=== PATIENT | male | born 1945 | race Caucasian/White ===

== ENCOUNTER 2017-04-07 19:19 | Inpatient (IN) ==
[2017-04-07] MEDS ORDERED: METHYLPREDNISOLONE SOD SUCC 125mg/2ml INJECTION IVP ONE (19:34)
[2017-04-07] MEDS ORDERED: ALBUTEROL/IPRATROPIUM 2.5mg-0.5mg/3ml NEB AEROSOL ONE (19:34)
--- OUTSIDE RECORDS SUMMARY | 2017-04-07 19:34 | External Medical Summary | Continuity of Care Document ---
:1945 Author Organization [facility] Allergies Active Description Code Type Severity Reaction Onset Reported/ Identified Relationship Clinical to Patient Status Yes No Known No Drug Unknown . 08/28/2014 Drug Known Aller Allergies Drug gy Aller gies Medications Problems Procedures Code Description Performed By Performed On Joey Levi MD 08/29/2014 45.42 ENDOSC POLYPECTOMY OF LG INTEST Results Test Result Range GLUCOSE (POC) - 08/29/14 09:17 GLUCOSE (POC) 132 mg/dL 70-99 GLUCOSE (POC) - 08/29/14 11:00 GLUCOSE (POC) 101 mg/dL 70-99 Encounters ACCT Visit Discharge Status Pt. Type Provider Facility Loc./Unit Complaint No. Date/Time [id number] 08/29/2014 08/29/2014 DIS Outpatient Amita OSCAR [id number] 08:35:00 11:00:00 , [facility]
--- NOTE | 2017-04-07 19:35 | Emergency Department Report ---
Asthma HPI - General Stated Complaint: soa,cough,chest hurts Time Seen by Provider: 04/07/17 19:30 Source: patient Mode of arrival: ambulatory Limitations: no limitations - History of Present Illness HPI Narrative: He has been having some trouble with wheezing and dyspnea over the last month. Was evaluated in ER a week ago for SOA. Was given a breathing treatment and Prednisone and that did help. Was advised to follow up with his PCP. He has an appointment with his graphic manager but is unable to get in with him for awhile. Today his breathing was much worse so he presents to Er. He does have an inhaler at home that he has been using. Noted RA sats upon arrival of 68%. He is diaphoretic. Is having chest pain with coughing he states. Is scheduled to see Dr Obando the process supervisor but no until May. He has been using his inhaler every 30 minutes today. MD complaint: shortness of breath, wheezing Onset (ago): day(s) Severity: moderate Context: none known Associated symptoms: none Treatments Prior to Arrival: inhaled bronchodilator - Related Data Home Medications Medication Instructions Recorded Confirmed Atorvastatin [Lipitor] 20 mg PO HS 01/11/17 04/07/17 Metformin [Glucophage] 1,000 mg PO BID 01/11/17 04/07/17 Albuterol HFA Inhaler [Ventolin 1 puff INH BID 04/01/17 04/07/17 Hfa 90 mcg/actuation] FLUoxetine [Prozac] 10 mg PO DAILY 04/01/17 04/07/17 glipiZIDE [Glipizide ER] 10 mg PO DAILY 04/01/17 04/07/17 Guaifenesin/Dm [Mucinex Dm] 1 tab PO BID PRN 04/07/17 04/07/17 Previous Rx's Medication Instructions Recorded Albuterol Neb (0.5%) [Proventil 2.5 mg AEROSOL Q4H PRN #30 vial 04/01/17 Neb (0.5%)] predniSONE [Prednisone] 10 mg PO DAILY #18 tab 04/01/17 Allergies Allergy/AdvReac Type Severity Reaction Status Date / Time No Known Allergies Allergy Verified 04/07/17 20:03 Review of Systems Constitutional: Denies: fever, chills, weakness ENT: Denies: ear pain, throat pain, congestion Cardiovascular: Reports: chest pain, dyspnea on exertion. Denies: palpitations , edema Respiratory: Reports: cough, dyspnea, wheezes Gastrointestinal: Denies: abdominal pain, nausea, vomiting, diarrhea Neurological: Denies: headache, weakness, numbness, paresthesias [facility] Patient Stated Medical History Asthma Yes Diabetes Mellitus Type 2 Yes Gastroesophageal Reflux Yes Disease Clinic Medical History Hypoxia (Acute Medical) Asthma with exacerbation (Inactive Medical) Vasculitis (Inactive Medical) - Social History Smoking status: Former smoker Substance use type: does not use Alcohol intake frequency: does not drink Physical Exam - Limitations Limitations: no limitations - General General appearance: alert, in no apparent distress - Normal Exams: ENMT:: No facial trauma, nasal exudates, pharyngeal erythema, or exudates are noted Neck:: Full range of motion, without adenopathy, JVD, bruits or thyromegaly Abdomen:: Bowel sounds positive, soft, non-tender, non-distended, no hepatosplenomegaly, masses or bruits noted Lymphatic:: No lymphadenopathy, or lymphedema noted Integumentary:: No rashes, hives, or bruising noted Neurological:: Patient is alert, and oriented Psychiatric:: Patient exhibits, appropriate attention, emotion and affect - Respiratory Respiratory exam: Present: wheezes (inspiratory and expiratory throughout all lobes) - Cardiovascular Cardiovascular exam: Present: tachycardia Course Vital Signs Temperature 98.2 F 04/07/17 19:22 Pulse Rate 115 H 04/07/17 19:22 Respiratory Rate 33 H 04/07/17 19:22 Blood Pressure 208/97 H 04/07/17 19:22 Pulse Oximetry 68 L 04/07/17 19:22 Temperature 98.2 F 04/07/17 19:22 Pulse Rate 114 H 04/07/17 21:06 Respiratory Rate 22 04/07/17 21:06 Blood Pressure 136/86 04/07/17 21:06 Pulse Oximetry 95 04/07/17 21:06 Dyspnea - MDM Narrative Medical decision making narrative: Xray today does not show a focal pneumonia. He was able to give a sputum sample and this was sent off for culture. Lab does show WBC of 21 without neutrophilia or bandemia. He did recently finish a steroid taper. Is currently on 2L per NC of O2 and sats are 95%. Did discuss with Dr Espinosa and he will accept for admission. - Differential Diagnosis Differential diagnosis: Likely: Acute exacerbation, Status asthmaticus, Pneumonia, ARDS - Lab Data Attestation: I reviewed the patient's lab results. Result diagrams: 04/07/17 19:53 04/07/17 19:53 Lab Results 04/07/17 04/07/17 04/07/17 Range/Units 19:53 19:53 19:53 WBC 21.6 H (4.5-11.0) T/MM3 RBC 4.52 (4.50-5.90) M/MM3 Hgb 13.4 L (13.5-17.5) GM/DL Hct 41.8 (41-53) % MCV 92.5 (80-100) UM3 MCH 29.6 (26-34) UUG MCHC 32.1 (31-37) GM/DL RDW Std Deviation 45.1 (36.9-50.2) FL Plt Count 359 (130-400) T/MM3 MPV 8.4 L (9.4-12.4) UM3 Immature Gran % (Auto) Not performed Neut % (Auto) Not performed Lymph % (Auto) Not performed [place] % (Auto) Not performed Eos % (Auto) Not performed Baso % (Auto) Not performed Neut # (Auto) Not performed Lymph # (Auto) Not performed [place] # (Auto) Not performed Eos # (Auto) Not performed Baso # (Auto) Not performed Abs Immat Gran (auto) Not performed Neutrophils % (Manual) 59.0 (33-66) % Band Neutrophils % 1.0 (0-6) % Lymphocytes % (Manual) 26.0 (23-45) % Monocytes % (Manual) 4.0 (0-9.0) % Eosinophils % (Manual) 10.0 H (0-4) % Neutrophils # (Manual) 12.7 H (1.8-7.7) T/MM3 Band Neutrophils # 0.2 T/MM3 Lymphocytes # (Manual) 5.6 H (1-4.8) T/MM3 Monocytes # (Manual) 0.9 H (0-0.8) T/MM3 Eosinophils # (Manual) 2.2 H (0-0.5) T/MM3 RBC Morph Comment Normal Turbidity < 20 (0-20) Sodium 142 (134-144) MEQ/L Potassium 3.9 (3.6-5) MEQ/L Chloride 101 (98-107) MEQ/L Carbon Dioxide 28 (22-30) MEQ/L Anion Gap 13 (5-15) MEQ/L BUN 13.0 (9-20) MG/DL Creatinine 0.8 (0.8-1.5) MG/DL GFR Calculation 96 BUN/Creatinine Ratio 16 (6-26) RATIO Glucose 125 H (75-110) MG/DL Calculated Osmolality 274 (261-280) MOSM/KG Calcium 9.2 (8.4-10.2) MG/DL Total Bilirubin 0.30 (0.20-1.30) MG/DL Icterus Index < 2 (0-7) AST 36 (17-59) U/L ALT 81 H (21-72) U/L Alkaline Phosphatase 104 (38-126) U/L Troponin I < 0.012 (0-0.12) ng/ml Total Protein 7.8 (6.3-8.2) G/DL Albumin 4.3 (3.5-5.0) G/DL Globulin 3.5 (2.4-3.6) G/DL Albumin/Globulin Ratio 1.2 (1.1-2.2) RATIO Plasma Lactate 1.8 (0.6-2.2) MMOL/L Procalcitonin < 0.05 NG/ML Specimen Hemolysis < 15 (0-25) - Radiology Data Attestation: I reviewed the patient's radiology results. Chest xray: no focal pneumonia, emphysematous changes. Disposition Clinical Impression: Hypoxia Disposition: To OBS [facility] Condition: Stable Prescriptions: No Action Metformin [Glucophage] 1,000 mg PO BID Albuterol HFA Inhaler [Ventolin Hfa 90 mcg/actuation] 1 puff INH BID glipiZIDE [Glipizide ER] 10 mg PO DAILY Albuterol Neb (0.5%) [Proventil Neb (0.5%)] 2.5 mg AEROSOL Q4H PRN #30 vial PRN Reason: Shortness Of Air/Wheezing predniSONE [Prednisone] 10 mg PO DAILY #18 tab Guaifenesin/Dm [Mucinex Dm] 1 tab PO BID PRN PRN Reason: Cough Atorvastatin [Lipitor] 20 mg PO HS FLUoxetine [Prozac] 10 mg PO DAILY Referrals: Heidy,Vazquez W, MD [Family Provider] - Time of Disposition: 21:48 - Seen By: midlevel
[2017-04-07] MEDS: SALINE FLUSH 10ml SYRINGE IVF PRN (19:41)
[2017-04-07] MEDS ORDERED: ALBUTEROL 2.5mg/3ml (0.083%) NEB AEROSOL ONE (19:59)
[2017-04-07] MEDS ORDERED: LEVOFLOXACIN PB 750 MG/150 ML BAG IV SCH (22:00)
--- NOTE | 2017-04-07 22:35 | History & Physical Report ---
History of Present Illness Date: 04/07/17 Chief complaint: dyspnea HPI: Shreyas is a 72 y/o w/ 1-2 month h/o persistent cough, intermittent shortness of air and wheezing that has become more prominent over the past 1-2 weeks. Patient was seen in [place] ER about 1 week ago for SOA and dyspnea and wheezing and temporarily improved w/ corticosteroids and neb treatments and sent home w/ albuterol mdi and tapering prednisone Patient returns to ER at [facility] tonight w/ persistent cough, dyspnea, wheezing and shortness of breath. Patient states he has no known h/o COPD or asthma, though states had similar episode about 6 years ago and also states did have asbestos exposure in the past. Patient states was set up to see local Head Tennis Coach Dr. Obando and also a Human Resources Representative in [place] but has not seen either of them yet. Patient in ER having wheezing and dyspnea and on RA was noted to have O2 sat of 68%. He had some diaphoresis and tachypnea and sinus tachycardia but denies chest pain, f/c/s and n/v/d. However does have some Chest discomfort w/ coughing episodes. Was using his albuterol inhaler about every 30 minutes tonight prior to arrival in ER. Patient states that his had a similar cough that lasted about 4 weeks and she is doing better now. Patient received DuoNebs x 2 and SoluMedrol 125mg IV x one and is now doing much better. O2 sat is 95% on 2 L/min O2 per NC. Patient's CXR prelim read that of no acute process, and EKG shows sinus tachycardia. Troponin and Lactate WNL; WBC = 21.6K. No left shift. Patient given Levaquin 750mg IV x one, had blood and sputum culture sent. Patient to be admitted to the Hospitalist service for further evaluation and management Review of Systems All systems PM: 10-point ROS was reviewed, no additional remarkable complaints except [facility] Clinic Medical History Hypoxia (Acute Medical) Asthma with exacerbation (Inactive Medical) - patient does not believe he has Asthma - said was possibly diagnosed d/t similar symptoms 6 years ago, but did not feel there was a definitive diagnosis. Vasculitis (Inactive Medical) HLD Medical History Updates: Type 2 DM Family History: No significant family history reported - Social History Smoking status: Former smoker Household members: spouse Medications Home Medications Medication Instructions Recorded Confirmed Type Atorvastatin [Lipitor] 20 mg PO HS 01/11/17 04/07/17 History Metformin [Glucophage] 1,000 mg PO BID 01/11/17 04/07/17 History Albuterol HFA Inhaler [Ventolin 1 puff INH BID 04/01/17 04/07/17 History Hfa 90 mcg/actuation] FLUoxetine [Prozac] 10 mg PO DAILY 04/01/17 04/07/17 History glipiZIDE [Glipizide ER] 10 mg PO DAILY 04/01/17 04/07/17 History Guaifenesin/Dm [Mucinex Dm] 1 tab PO BID PRN 04/07/17 04/07/17 History Allergies Allergy/AdvReac Type Severity Reaction Status Date / Time No Known Allergies Allergy Verified 04/07/17 20:03 Exam Vital Signs: Temperature 98.2 F 04/07/17 19:22 Pulse Rate 114 H 04/07/17 21:06 Respiratory Rate 22 04/07/17 21:06 Blood Pressure 136/86 04/07/17 21:06 Pulse Oximetry 95 04/07/17 21:06 Telemetry Rhythm: Sinus Rhythm, Sinus Tachycardia - Constitutional Present: no acute distress, well nourished, well developed - Routine HEENT Exam Head: Present: normocephalic, atraumatic Eye: Present: EOMI, PERRL ENT: Present: mucous membranes moist - Routine Neck Exam Present: supple, full ROM. Absent: JVD - Routine Respiratory Exam Present: prolonged expiratory phase, wheezes, diminished air movement - Routine Cardiovascular Exam Present: RRR, tachycardia - Routine Abdominal Exam Present: soft, non distended, non tender - Routine Extremities Exam Absent: cyanosis, clubbing, edema - Routine Skin Exam Present: intact, dry - Routine Neurological Exam Present: alert, oriented X3 - Routine Psychiatric Exam Present: normal affect, normal thought process Results - Labs CBC & Chem 7: 04/07/17 19:53 04/07/17 19:53 Assessment and Plan Assessment and Plan: Assessment: 1) Acute Hypoxia requiring O2 2) ACute Exacerbation of Reactive Airways - ? asthma vs. COPD vs. Atypical pnuemonia w/o radiographic signs vs. other etiology 3) Acute Leukocytosis - possible reactive vs. corticosteroid induced vs. other etiology 4) Type 2 DM 5) History of smoking - states was cigar smoking, not cigarettes; also h/o asbestos exposure 6) HLD Plan: Admit to Hospitalist service Consult Dr. Obando of Pulmonary RT consult DuoNebs QID Albuterol nebs q 2 hours prn Levaquin 750mg IV q 24 hours Sputum cx Blood cx Resp panel and mycoplasma Solu-Medrol 125mg IV q [address] scan chest if no significant improvement in the AM Correctional Insulin and accuchecks ac and hs Carb consistent diet SCDs Tussionex 5mL po q 12 hours PRN (per patient's request) I discussed the plan of care w/ the patient and the patient's family and they verbalized understanding and agreement w/ the plan of care. DVT Prophylaxis: SCD's Resuscitation Status: Full Code Hospital Course Summary Disclaimer: The visit summary below is not to be considered part of the above Progress Note.
[2017-04-07] MEDS ORDERED: ACETAMINOPHEN 325 MG TABLET PO PRN (22:40)
[2017-04-07] MEDS ORDERED: ONDANSETRON 4 MG/2 ML INJECTION IVP PRN (22:40)
[2017-04-07 23:05] VITALS: BMI 31.1
[2017-04-07] MEDS ORDERED: GLUCOSE ORAL GEL 40% 37.5gm PO PRN (23:27)
[2017-04-07] MEDS ORDERED: DEXTROSE 50% SYRINGE 50ml (1 AMP) IVP PRN (23:27)
[2017-04-07] MEDS: GUAIFENESIN/D-METHORPHAN 600mg/30mg TABLET PO PRN (23:56)
[2017-04-07] MEDS: HYDROCODONE/CHLORPHENIRAMINE ER ORAL LIQ 5ml PO PRN (23:57)
[2017-04-08] MEDS: ALBUTEROL 2.5mg/0.5ml (0.5%) NEB AEROSOL PRN ×3 (00:02→05:10)
[2017-04-08] MEDS: METHYLPREDNISOLONE SOD SUCC 125mg/2ml INJECTION IVP SCH ×2 (03:52→09:14)
[2017-04-08] MEDS: INSULIN ASPART 100unit/ml INJECTION SQ PRN ×5 (05:42→22:18)
[2017-04-08] MEDS: ALBUTEROL/IPRATROPIUM 2.5mg-0.5mg/3ml NEB AEROSOL SCH ×4 (07:21→19:40)
[2017-04-08] MEDS: FLUoxetine 10 MG CAPSULE PO SCH (09:14)
[2017-04-08] MEDS: GUAIFENESIN/D-METHORPHAN 600mg/30mg TABLET PO PRN (09:18)
--- NOTE | 2017-04-08 12:38 | Pulmonology Consult Note ---
History of Present Illness Consult date: 04/08/17 Reason for consult: dyspnea, cough History of present illness: This is a 72 year old male with history of intermittent breathing problems. He has seen doctors in the past for evaluation, but nothing has been found. He was told he has history of asbestosis but that this would not have any long- term impact on him. In the past month he has been having some trouble with wheezing and dyspnea. Was evaluated in ER a week ago for SOA. Was given a breathing treatment and Prednisone and that did help. Was advised to follow up with his PCP. He has an appointment with his technical solution architect but is unable to get in with him for awhile. Today his breathing was much worse so he presents to Er. He does have an inhaler at home that he has been using. Noted RA sats upon arrival of 68%. He is diaphoretic. Is having chest pain with coughing he states. Is scheduled to see Dr Obando the ultrasound tester but no until May. He has been using his inhaler every 30 minutes today. He has minimal smoking history. Smokes cigars for about 5 years. No asthma or copd. no family history of lung problems including copd, asthma, PE. MD complaint: shortness of breath, wheezing Onset (ago): day(s) Severity: moderate Context: none known Associated symptoms: none Treatments Prior to Arrival: inhaled bronchodilator - Related Data Home Medications Medication Instructions Recorded Confirmed Atorvastatin [Lipitor] 20 mg PO HS 01/11/17 04/07/17 Metformin [Glucophage] 1,000 mg PO BID 01/11/17 04/07/17 Albuterol HFA Inhaler [Ventolin 1 puff INH BID 04/01/17 04/07/17 Hfa 90 mcg/actuation] FLUoxetine [Prozac] 10 mg PO DAILY 04/01/17 04/07/17 glipiZIDE [Glipizide ER] 10 mg PO DAILY 04/01/17 04/07/17 Guaifenesin/Dm [Mucinex Dm] 1 tab PO BID PRN 04/07/17 04/07/17 Previous Rx's Medication Instructions Recorded Albuterol Neb (0.5%) [Proventil 2.5 mg AEROSOL Q4H PRN #30 vial 04/01/17 Neb (0.5%)] predniSONE [Prednisone] 10 mg PO DAILY #18 tab 04/01/17 Allergies Allergy/AdvReac Type Severity Reaction Status Date / Time No Known Allergies Allergy Verified 04/07/17 20:03 Review of Systems Constitutional: Denies: fever, chills, weakness ENT: Denies: ear pain, throat pain, congestion Cardiovascular: Reports: chest pain, dyspnea on exertion. Denies: palpitations , edema Respiratory: Reports: cough, dyspnea, wheezes Gastrointestinal: Denies: abdominal pain, nausea, vomiting, diarrhea Neurological: Denies: headache, weakness, numbness, paresthesias [facility] Patient Stated Medical History Asthma Yes Diabetes Mellitus Type 2 Yes Gastroesophageal Reflux Yes Disease Clinic Medical History Hypoxia (Acute Medical) Asthma with exacerbation (Inactive Medical) Vasculitis (Inactive Medical) - Social History Smoking status: Former smoker Substance use type: does not use Alcohol intake frequency: does not drink [facility] Patient Stated Medical History Chronic Obstructive Pulmonary Yes: suspected 6 years ago Disease (COPD) Diabetes Mellitus Type 2 Yes Gastroesophageal Reflux Yes Disease Hx Benign Prostatic Yes Hyperplasia Clinic Medical History Hypoxia (Acute Medical) Asthma with exacerbation (Inactive Medical) Vasculitis (Inactive Medical) Medical History Updates: Type 2 DM - Social History Smoking status: Former smoker Medications Home Medications Medication Instructions Recorded Confirmed Type Atorvastatin [Lipitor] 20 mg PO HS 01/11/17 04/07/17 History Metformin [Glucophage] 1,000 mg PO BID 01/11/17 04/07/17 History Albuterol HFA Inhaler [Ventolin 1 puff INH BID 04/01/17 04/07/17 History Hfa 90 mcg/actuation] FLUoxetine [Prozac] 10 mg PO DAILY 04/01/17 04/07/17 History glipiZIDE [Glipizide ER] 10 mg PO DAILY 04/01/17 04/07/17 History Guaifenesin/Dm [Mucinex Dm] 1 tab PO BID PRN 04/07/17 04/07/17 History Allergies Allergy/AdvReac Type Severity Reaction Status Date / Time No Known Allergies Allergy Verified 04/07/17 20:03 Exam Vital signs: Temperature 97.3 F 04/08/17 08:24 Pulse Rate 73 04/08/17 08:24 Respiratory Rate 16 04/08/17 11:31 Blood Pressure 132/78 04/08/17 08:24 Pulse Oximetry 95 04/08/17 11:31 - Constitutional no acute distress - Routine HEENT Exam Head: Present: normocephalic, atraumatic - Routine Neck Exam Present: supple, full ROM - Routine Respiratory Exam Present: wheezes. Absent: accessory muscle use Comments: slight wheeze on the left, mildly diminished breath sounds - Routine Cardiovascular Exam Present: RRR. Absent: murmur - Routine Abdominal Exam Present: soft. Absent: guarding - Routine Extremities Exam Absent: cyanosis, clubbing, edema - Routine Skin Exam Present: intact. Absent: cyanosis, rash - Routine Neurological Exam Present: alert, oriented X3 - Routine Psychiatric Exam Present: normal affect, normal thought process Results - Laboratory Findings CBC and BMP: 04/08/17 03:28 04/08/17 03:28 Abnormal lab findings: Abnormal Labs 04/08/17 04/08/17 04/08/17 00:09 03:28 03:28 WBC 19.9 H Hgb 13.4 L Neutrophils % (Manual) 83.0 H Lymphocytes % (Manual) 2.0 L Eosinophils % (Manual) 6.0 H Neutrophils # (Manual) 16.5 H Lymphocytes # (Manual) 0.4 L Eosinophils # (Manual) 1.2 H Creatinine 0.7 L Glucose 243 H Plasma Lactate 2.3 H - Diagnostic Findings Chest x-ray: image reviewed (mild hyperinflation, clear lung guaman, normal vasculature) Assessment and Plan (1) Acute respiratory failure with hypoxemia Status: Acute Assessment and plan: This is an interesting case. The patient presented with acute hypoxemic respiratory failure, cough with yellow sputum and shortness of breath. His presentation was very much compatible with exacerbation of obstructive airways disease. His CXR does support this diagnosis given the mild hyperinflation. Unfortunately the case is complicated in that he has no history of obstructive airways disease and this deserves an in-depth evaluation. He needs a complete PFT to help with this diagnosis. Other considerations in the workup of this issue would be thromboembolic disease. His hypoxemia and clear CXR support this diagnosis. I recommend CTA chest. This would also help us evaluate his lung parenchyma and rule out ILD, fibrotic lung disease, or asbestos related pleural disease. We will follow with you. thank you Current Visit: Yes - Time Spent With Patient Total time spent is greater than 50% in coordination of care (as documented) at patient's floor/unit and/or counseling patient: greater than 35 minutes
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
[2017-04-08] MEDS ORDERED: IOHEXOL 350mg/ml 75ml INJECTION ONE (13:13)
[2017-04-08] MEDS ORDERED: NS 100 ML ONE (13:14)
[2017-04-08] MEDS ORDERED: SALINE FLUSH 10ml SYRINGE ONE (13:14)
[2017-04-08] MEDS: ENOXAPARIN 40 MG/0.4 ML INJECTION SQ SCH (14:11)
[2017-04-08] MEDS: ATORVASTATIN 20 MG TABLET PO SCH (21:52)
[2017-04-08] MEDS: LEVOFLOXACIN PB 750 MG/150 ML BAG IV SCH (21:53)
[2017-04-09] MEDS: INSULIN ASPART 100unit/ml INJECTION SQ PRN ×2 (06:01→17:48)
[2017-04-09] MEDS: ALBUTEROL/IPRATROPIUM 2.5mg-0.5mg/3ml NEB AEROSOL SCH ×4 (07:03→19:20)
[2017-04-09] MEDS: ENOXAPARIN 40 MG/0.4 ML INJECTION SQ SCH (08:35)
[2017-04-09] MEDS: FLUoxetine 10 MG CAPSULE PO SCH (08:35)
[2017-04-09] MEDS: GlipiZIDE 5 MG TABLET PO SCH (08:35)
[2017-04-09] MEDS: PredniSONE 20 MG TABLET PO SCH (08:35)
[2017-04-09] MEDS: GUAIFENESIN/D-METHORPHAN 600mg/30mg TABLET PO PRN ×2 (08:35→22:02)
--- NOTE | 2017-04-09 09:10 | Progress Note ---
- Date 04/09/17 Subjective: Shreyas is a 72 y/o w/ 1-2 month h/o persistent cough, intermittent shortness of air and wheezing that has become more prominent over the past 1-2 weeks. Patient was seen in [place] ER about 1 week prior to this admission for SOA and dyspnea and wheezing and temporarily improved w/ corticosteroids and neb treatments and sent home w/ albuterol mdi and tapering prednisone He returned to ER at [facility] [place] 04/08/17 w/ persistent cough, dyspnea, wheezing and shortness of breath. Patient states he has no known h/o COPD or asthma, though states had similar episode about 6 years ago and also states did have asbestos exposure in the past. Patient states was set up to see local Gas Fitter Apprentice Dr. Deleon and also a Boatbuilder Supervisor in [place] but has not seen either of them yet. In ER, he was wheezing with dyspnea. RA O2 sat 68%. He had diaphoresis and tachypnea. He was tachycardic. He denied chest pain, f/c/s and n/v/d. However he does complain of chest discomfort with cough. He was using his albuterol inhaler about every 30 minutes prior to arrival in ER. Patient states that his had a similar cough that lasted about 4 weeks and she is doing better now. Patient received DuoNebs x 2 and SoluMedrol 125mg IV x one with improvement of his symptoms. O2 sat is 95% on 2 L/min O2 per NC. Patient's CXR prelim read that of no acute process, and EKG shows sinus tachycardia. Troponin and Lactate WNL; WBC = 21.6K. No left shift. Patient given Levaquin 750mg IV x one, had blood and sputum culture sent. Patient to be admitted to the Hospitalist service for further evaluation and management Today, his WBC is up again. This could still be steroid induced. He is afebrile. He is on RA. He continues to have a mildly productive cough. Plan for PFTs monday. CTA of the chest was unremarkable, no PE, Small infiltrates in both lower lung guaman. CP better and only there with cough. Breathing is fine. No N/V/D/C. Eating well. [place] and bladder working fine. Objective Vital signs: Temperature 96.1 F L 04/09/17 08:03 Pulse Rate 83 04/09/17 08:03 Respiratory Rate 20 04/09/17 08:03 Blood Pressure 126/69 04/09/17 08:03 Pulse Oximetry 93 04/09/17 08:03 Height/Weight/BMI: Height 1.69 m Weight 87.3 kg Body Mass Index 31.1 Comments: Gen: alert and oriented. NAD Skin: warm and dry HEENT: NC/AT PERRL, EOMI, Sclera, lids and conjunctiva wnl, MMM, OP clear Neck: supple, no JVD, carotids 2+ without bruits. Lungs: diminished BS bilaterally, Soft Exp wheezes., no rhonchi or rales CV: regular. No murmur, rub or gallop Abd: soft. NT/ND, +BS MS: No edema. Good strength and ROM. Neuro: No focal deficit Results - Labs CBC & Chem 7: 04/09/17 04:06 04/09/17 04:06 Assessment and Plan Assessment and Plan: 1) Acute Hypoxia requiring O2 -Dr. Deleon consulted -CT with and without contrast shows no PE and relatively unremarkable -Sputum with Gram+ cocci in pairs. -On levaquin -Lactate 2.8 this am, repeat in am. Procalcitonin neg. -PFTs on monday -Echo on monday 2) Acute Exacerbation of Reactive Airways - ? asthma vs. COPD vs. Atypical pneumonia w/o radiographic signs vs. other etiology -No history of asthma or COPD -PFTs on monday -Resp therapy -Oxygen as needed 3) Acute Leukocytosis - possible reactive vs. corticosteroid induced vs. other etiology - Follow labs - Steroids changed to low dose po today 4) Type 2 DM -Continue home glipizide -SSI -Carb consistent diet 5) Elevated BP on admission without diagnosis of HTN -BP better at present, monitor closely. 6) HLD -On a statin 7) Prophylaxis -Lovenox Hospital Course Summary Disclaimer: The visit summary below is not to be considered part of the above Progress Note.
--- NOTE | 2017-04-09 09:34 | XRay Report ---
INDICATION: dyspnea PROCEDURE: CHEST 2-VIEWS UPRIGHT (PA & LAT) Encounter: Initial COMPARISON: April 01, 2017 FINDINGS: The lungs are clear without evidence of focal abnormal airspace opacity. There is no pleural effusion or pneumothorax. The heart size, mediastinal contours and pulmonary vascularity are within normal limits. There is no significant skeletal abnormality. IMPRESSION: No acute cardiopulmonary disease. .
--- NOTE | 2017-04-09 10:08 | CT Scan Report ---
Indication: Hypoxia PROCEDURE: CT angio pulm emboli: Encounter: Initial Comparison: Chest x-ray from the day before Technique: Axial CT pulmonary angiographic phase images were performed through the chest after the administration of intravenous contrast. Coronal and Sagittal MIP reconstructed images were created and reviewed. Automated Exposure Control and Iterative Reconstruction dose reducing techniques were utilized. Contrast: Omnipaque 350 75 mL Findings: Pulmonary arteries: Exam is diagnostic to the subsegmental pulmonary arterial level. No filling defects identified to suggest a pulmonary embolus. Other findings: No pleural effusion or pneumothorax. Scattered inflammatory type opacities the lower lobes with mild groundglass. Upper lung guaman are clear. Central airways are patent. 6 mm left lower lobe noncalcified pulmonary nodule. No axillary or mediastinal adenopathy. Heart size is normal. No pericardial effusion. The upper abdomen shows no acute findings. Impression: 1. No pulmonary embolus. 2. Minimal infectious or inflammatory change in the lung bases. 3. 6 mm left lower lobe pulmonary nodule. Recommend noncontrast chest CT follow-up in 6-12 months. There is a preliminary report by [employer]. .
[2017-04-09] MEDS: LEVOFLOXACIN PB 750 MG/150 ML BAG IV SCH (22:02)
[2017-04-09] MEDS: ATORVASTATIN 20 MG TABLET PO SCH (22:02)
[2017-04-09] MEDS: SALINE FLUSH 10ml SYRINGE IVF PRN (22:03)
[2017-04-09] MEDS: HYDROCODONE/CHLORPHENIRAMINE ER ORAL LIQ 5ml PO PRN (22:03)
[2017-04-10] MEDS: INSULIN ASPART 100unit/ml INJECTION SQ PRN ×3 (00:03→20:44)
--- NOTE | 2017-04-10 08:35 | XRay Report ---
EXAM: XR chest 2V 0629 hours COMPARISON: 04/08/2017. 04/07/2017. 04/01/2017. HISTORY: Dyspnea . FINDINGS:The lungs are hyperinflated with increased AP diameter and flattening of the diaphragms which may be from chronic emphysematous changes. The cardiomediastinal silhouette is within limits of normal. The pulmonary vascularity appears unremarkable. The lungs are clear. There is no evidence for pleural effusion. There is no evidence for a pneumothorax. Multiple rib deformities are seen of multiple anterolateral left ribs. IMPRESSION: No acute process identified. LOCATION OF DICTATION: [facility] [place] .
[2017-04-10] MEDS: ENOXAPARIN 40 MG/0.4 ML INJECTION SQ SCH (09:33)
[2017-04-10] MEDS: FLUoxetine 10 MG CAPSULE PO SCH (09:34)
[2017-04-10] MEDS: PredniSONE 20 MG TABLET PO SCH (09:34)
[2017-04-10] MEDS: GlipiZIDE 5 MG TABLET PO SCH (09:34)
[2017-04-10] MEDS: SALINE FLUSH 10ml SYRINGE IVF PRN (09:35)
--- NOTE | 2017-04-10 11:13 | Pulmonology Progress Note ---
Subjective Principal diagnosis: Acute Hypoxic Respiratory Failure Interval history: Patient sitting upright in bed. No acute distress. Occasional Productive cough with yellow/brown sputum. No SOA feels he is breathing better today. Exam Vital signs: Temperature 95.1 F L 04/10/17 08:00 Pulse Rate 75 04/10/17 08:00 Respiratory Rate 18 04/10/17 08:00 Blood Pressure 132/74 04/10/17 08:00 Pulse Oximetry 93 04/10/17 08:00 - Constitutional no acute distress, well nourished, well developed, cooperative - Routine HEENT Exam Head: Present: normocephalic, atraumatic Eye: Present: EOMI, PERRL ENT: Present: mucous membranes moist - Routine Neck Exam Present: supple, full ROM, trachea midline - Routine Respiratory Exam Present: wheezes - Routine Cardiovascular Exam Present: RRR, S1, S2, no murmur - Routine Abdominal Exam Present: soft, non distended, non tender - Routine Extremities Exam Present: no edema, normal capillary refill - Routine Back/Spine/Pelvis Exam Back/Spine: Present: full ROM - Routine Skin Exam Present: intact, dry, warm, normal turgor - Routine Neurological Exam Present: alert, oriented X3, CN II-XII intact, moving all extremities, normal speech - Routine Psychiatric Exam Present: normal affect, normal thought process, cooperative Assessment and Plan - Assessment and Plan Acute Hypoxic Respiratory Failure COPD vs. Asthma exacerbation 6 mm LLL nodule Bilateral lower lobe infiltrates per CT Asbestos exposure Plan: Patient currently on RA, tolerating well. Patient still wheezing, still on a/a QID, prednisone 20mg PO daily. Add Pulmicort for wheezing BID. sputum cx with positive stain, awaiting cx, currently on Levaquin daily, afebrile, WBC's improving. CT with LLL nodule to small to bx at this time. Will continue to follow with CT's. Has hx of asbestos exposure, no pleural plaquing noted, continue to follow. Awaiting PFT's to be done today. - Time Spent With Patient Total time spent is greater than 50% in coordination of care (as documented) at patient's floor/unit and/or counseling patient: less than 15 minutes
[2017-04-10] MEDS: ALBUTEROL/IPRATROPIUM 2.5mg-0.5mg/3ml NEB AEROSOL SCH ×4 (13:16→20:00)
--- NOTE | 2017-04-10 16:43 | Progress Note ---
- Date 04/10/17 Subjective: F/U: Acute hypoxic respiratory failure. Improving-less SOA but cough still problematic. Not having pain with breathing. Winds less with activities-able to move more. Still with cough and some sputum. No mouth pain. Eating well. No ab pain. No f/c. Objective Vital signs: Temperature 95.4 F L 04/10/17 16:00 Pulse Rate 84 04/10/17 16:00 Respiratory Rate 18 04/10/17 16:06 Blood Pressure 123/78 04/10/17 16:00 Pulse Oximetry 98 04/10/17 16:07 Height/Weight/BMI: Height 1.69 m Weight 87.3 kg Body Mass Index 31.1 - Constitutional Present: well nourished, well developed, obese, cooperative. Absent: agitated - Routine HEENT Exam Head: Present: normocephalic, atraumatic Eye: Present: EOMI, PERRL ENT: Present: mucous membranes moist - Routine Respiratory Exam Present: decreased breath sounds. Absent: rales, respiratory distress, rhonchi , wheezes, crackles - Routine Cardiovascular Exam Present: RRR, no murmur - Routine Abdominal Exam Present: soft, normoactive bowel sounds, non distended, non tender - Routine Extremities Exam Present: cyanosis, clubbing, no edema, pulses intact - Routine Musculoskeletal Exam Musculoskeletal: Present: no clubbing or cyanosis, normal strength - Routine Skin Exam Present: intact, dry, warm - Routine Neurological Exam Present: alert, oriented X3, CN II-XII intact, moving all extremities, vision grossly intact, hearing grossly intact, normal speech. Absent: motor deficit, altered mental status - Routine Psychiatric Exam Present: normal affect, normal thought process, cooperative. Absent: anxious, agitated Results - Labs CBC & Chem 7: 04/10/17 04:32 04/09/17 04:06 Assessment and Plan Assessment and Plan: Assessment Acute hypoxic respiratory failure Acute exacerbation of reactive air way disease Leukocytosis Type II DM HDL Hx smoking Elevated lactate of uncertain etiology - not seeing evidence for sepsis Elevated BP at presentation - improved Plan Continue Levaquin for pulmonary coverage. Continue DuoNeb treatments - budesonide added today by pulm. Continue Prednisone 20mg. Will schedule Mucinex DM to decrease cough - Tussionex prn. Check on PFT - discussed with Dr Deleon who plans to read then post clinic today. ECHO pending. Sputum pending. Encourage activities. Will recheck CBC in am due to leukocytosis. Repeat CMP. Case discussed with CM and Dr Deleon. Time spent with patient care 25 minutes. DVT Prophylaxis: Lovenox Resuscitation Status: Full Code - Time spent with patient Time with patient PN: 25 minutes Hospital Course Summary Disclaimer: The visit summary below is not to be considered part of the above Progress Note. Hospital Course: 04/07/17 - Admission Assessment Acute hypoxic respiratory failure Acute exacerbation of reactive air way disease Leukocytosis Type II DM HDL Hx smoking Elevated lactate of uncertain etiology - not seeing evidence for sepsis Elevated BP at presentation - improved Plan Admit to Hospitalist service Consult Dr. Obando of Pulmonary RT consult; DuoNebs QID - Albuterol nebs q 2 hours prn Levaquin 750mg IV q 24 hours Sputum cx/Blood cx Resp panel and mycoplasma Solu-Medrol 125mg IV q [address] scan chest if no significant improvement in the AM Correction[employer] Insulin and accuchecks ac and hs Carb consistent diet SCDs Tussionex 5mL po q 12 hours PRN (per patient's request) 04/08/17 - CT with and without contrast ordered for eval of PE, ILD - Sputum with Gram+ cocci in pairs. - Lactate 2.3 this am, repeat in am. Procalcitonin neg. - PFTs on monday/echo on monday - Resp therapy - Oxygen as needed - Decrease steroids to po - Continue home glipizide - SSI - Carb consistent diet - BP better at present, monitor closely. 04/09/17 Today, his WBC is up again. This could still be steroid induced. He is afebrile. He is on RA. He continues to have a mildly productive cough. Plan for PFTs monday. CTA of the chest was unremarkable, no PE, Small infiltrates in both lower lung guaman. CP better and only there with cough. Breathing is fine. No N/V/D/C. Eating well. [place] and bladder working fine. - Lactate 2.8 this am not seeing evidence of shock/sepsis, repeat in am. Procalcitonin neg. - Steroids changed to low dose po today 04/10/17 Continue Levaquin for pulmonary coverage. Continue DuoNeb treatments - budesonide added today by pulm. Continue Prednisone 20mg. Will schedule Mucinex DM to decrease cough - Tussionex prn. Check on PFT - discussed with Dr Deleon who plans to read then post clinic today. ECHO pending. Sputum pending. Encourage activities. Will recheck CBC in am due to leukocytosis. Repeat CMP.
[2017-04-10] MEDS: BUDESONIDE INH.SOLN 0.5mg/2ml NEB AEROSOL SCH (20:00)
[2017-04-10] MEDS: ATORVASTATIN 20 MG TABLET PO SCH (20:44)
[2017-04-10] MEDS ORDERED: LEVOFLOXACIN 500 MG TABLET PO SCH (22:10)
[2017-04-11] MEDS ORDERED: LEVOFLOXACIN 500 MG TABLET PO SCH ×2 (06:30→21:00)
[2017-04-11] MEDS: ALBUTEROL/IPRATROPIUM 2.5mg-0.5mg/3ml NEB AEROSOL SCH ×2 (06:34→11:34)
[2017-04-11] MEDS: BUDESONIDE INH.SOLN 0.5mg/2ml NEB AEROSOL SCH (06:34)
[2017-04-11 07:31] VITALS: BP 127/78; TEMP 96.8
[2017-04-11] MEDS: FLUoxetine 10 MG CAPSULE PO SCH (08:15)
[2017-04-11] MEDS: PredniSONE 20 MG TABLET PO SCH (08:15)
[2017-04-11] MEDS: GlipiZIDE 5 MG TABLET PO SCH (08:15)
[2017-04-11] MEDS: ENOXAPARIN 40 MG/0.4 ML INJECTION SQ SCH (08:15)
--- NOTE | 2017-04-11 09:33 | Echocardiogram ---
DATE OF PROCEDURE April 10, 2017 This is a two-dimensional echo with spectral Doppler, color-flow and M-mode. It was obtained in a patient with dyspnea. Left atrial dimension is normal. Left ventricle end-diastolic dimension is normal. Left ventricle wall thickness is normal. LV systolic function is normal with ejection fraction of 55%. Right atrium is normal. Right ventricle is normal. Aortic root dimension is normal. Mitral valve is morphologically normal. Aortic valve appears to be normal. Tricuspid valve shows mild tricuspid regurgitation with normal estimated pulmonary artery systolic pressure of 25. Pulmonary valve shows mild pulmonary insufficiency. There is no pericardial effusion. IMPRESSION 1. Normal LV systolic function with ejection fraction of 55%. 2. Mild tricuspid regurgitation with normal estimated pulmonary artery systolic pressure of 25. 3. Mild pulmonary insufficiency. MTDD
--- NOTE | 2017-04-11 11:09 | Pulmonology Progress Note ---
Subjective Principal diagnosis: Acute Hypoxic Respiratory Failure Interval history: Patient sitting upright in chair. No acute distress. Continued cough with minimal sputum. No SOA feels he is breathing better today. Exam Vital signs: Temperature 96.8 F 04/11/17 07:29 Pulse Rate 86 04/11/17 08:17 Respiratory Rate 20 04/11/17 07:29 Blood Pressure 127/78 04/11/17 07:29 Pulse Oximetry 96 04/11/17 07:29 - Constitutional no acute distress, well nourished, well developed - Routine HEENT Exam Head: Present: normocephalic, atraumatic Eye: Present: EOMI, PERRL ENT: Present: mucous membranes moist - Routine Neck Exam Present: supple, full ROM, trachea midline - Routine Respiratory Exam Present: wheezes Comments: expiratory wheezes - Routine Cardiovascular Exam Present: RRR, S1, S2, no murmur - Routine Abdominal Exam Present: soft, normoactive bowel sounds, non distended, non tender - Routine Extremities Exam Present: no edema, full ROM, normal capillary refill - Routine Back/Spine/Pelvis Exam Back/Spine: Present: full ROM - Routine Skin Exam Present: intact, dry, normal turgor - Routine Neurological Exam Present: alert, oriented X3, CN II-XII intact, moving all extremities, normal tone, normal speech - Routine Psychiatric Exam Present: normal affect, normal thought process Assessment and Plan - Assessment and Plan Acute Hypoxic Respiratory Failure Asthma exacerbation- PFT shows mild obstruction FEV1/FVC 61 FEV1 84% DLCO 101 6 mm LLL nodule Follow per CT Bilateral lower lobe infiltrates per CT Asbestos exposure Plan: Patient currently on RA, tolerating well. Patient still wheezing, still on a/a QID, prednisone 20mg PO daily. Add Pulmicort for wheezing BID. sputum cx with positive stain, awaiting cx. afebrile, WBC's improving. CT with LLL nodule to small to bx at this time. Will continue to follow with CT's. Has hx of asbestos exposure, no pleural plaquing noted, continue to follow. PFTs show mild obstruction consistent with acute asthma exacerbation. Will send home with ICS/LABA sample and will need to f/u in clinic in 2-3 weeks. Continue abx total 7 days and wean steroids. - Time Spent With Patient Total time spent is greater than 50% in coordination of care (as documented) at patient's floor/unit and/or counseling patient: less than 15 minutes
[2017-04-11] MEDS: INSULIN ASPART 100unit/ml INJECTION SQ PRN (11:28)
[2017-04-11 11:37] VITALS: RESP 18; O2SAT 98
--- NOTE | 2017-04-11 13:16 | Progress Note ---
- Date 04/11/17 Subjective: F/U: Acute hypoxic respiratory failure. Breathing better, but still with cough. Not bringing up sputum. Maintaining saturations well on RA. Eating well. No acid reflux. Ambulating well. No f/c. Objective Vital signs: Temperature 96.8 F 04/11/17 07:29 Pulse Rate 86 04/11/17 08:17 Respiratory Rate 18 04/11/17 11:36 Blood Pressure 127/78 04/11/17 07:29 Pulse Oximetry 98 04/11/17 11:36 Height/Weight/BMI: Height 1.69 m Weight 85.6 kg Body Mass Index 31.1 - Constitutional Present: no acute distress, well nourished, well developed, average body habitus , obese - Routine HEENT Exam Head: Present: normocephalic, atraumatic Eye: Present: EOMI, PERRL ENT: Present: mucous membranes moist - Routine Respiratory Exam Present: decreased breath sounds, distant breath sounds, diminished air movement. Absent: rales, respiratory distress, rhonchi, wheezes - Routine Cardiovascular Exam Present: RRR, no murmur - Routine Abdominal Exam Present: soft, non distended, non tender. Absent: guarding - Routine Extremities Exam Present: no edema, pulses intact. Absent: cyanosis, clubbing - Routine Musculoskeletal Exam Musculoskeletal: Present: no clubbing or cyanosis, normal strength - Routine Skin Exam Present: intact, dry, warm - Routine Neurological Exam Present: alert, oriented X3, CN II-XII intact, moving all extremities, vision grossly intact, hearing grossly intact, normal speech. Absent: motor deficit, altered mental status - Routine Psychiatric Exam Present: normal affect, normal thought process, cooperative, good insight, good judgment. Absent: anxious, agitated Results - Labs CBC & Chem 7: 04/11/17 04:48 04/11/17 04:48 Assessment and Plan Assessment and Plan: Assessment Acute hypoxic respiratory failure Acute exacerbation of reactive air way disease - PFT showing Asthma Leukocytosis Type II DM HDL Hx smoking Elevated lactate of uncertain etiology - not seeing evidence for sepsis Elevated BP at presentation - improved Plan ECHO showing: Normal LV systolic function with ejection fraction of 55% Mild tricuspid regurgitation with normal estimated pulmonary artery systolic pressure of 25. Mild pulmonary insufficiency. PFT showing: Asthma Maintaining saturations well on RA. Medically stable for discharge to home. Pulmonology recommending Breo 200/25 one puff once a day - samples given. Will continue with Albuterol Neb treatments TID - my use his MDI every 4 hours as needed. Routine use of Mucinex DM BID for 1 week, then as needed for cough. Phenergan with Codeine 5ml q 6 hours prn severe cough. Continue Prednisone - 20mg daily for 5 days, then may decrease to the 10mg he has at home and finish these. Cipro 500mg po BID for then next days to complete antibiotic course. F/U with Dr Moody in 1 week for PCP evaluation. F/U with Dr Deleon in 2-3 weeks for pulmonary evaluation. See orders for details Case discussed with CM and Pulmonology. Time spent with patient care and discharge greater than 30 minutes. DVT Prophylaxis: Lovenox Resuscitation Status: Full Code Hospital Course Summary Disclaimer: The visit summary below is not to be considered part of the above Progress Note. Hospital Course: 04/07/17 - Admission Assessment Acute hypoxic respiratory failure Acute exacerbation of reactive air way disease Leukocytosis Type II DM HDL Hx smoking Elevated lactate of uncertain etiology - not seeing evidence for sepsis Elevated BP at presentation - improved Plan Admit to Hospitalist service Consult Dr. Obando of Pulmonary RT consult; DuoNebs QID - Albuterol nebs q 2 hours prn Levaquin 750mg IV q 24 hours Sputum cx/Blood cx Resp panel and mycoplasma Solu-Medrol 125mg IV q [address] scan chest if no significant improvement in the AM Correctional Insulin and accuchecks ac and hs Carb consistent diet SCDs Tussionex 5mL po q 12 hours PRN (per patient's request) 04/08/17 - CT with and without contrast ordered for eval of PE, ILD - Sputum with Gram+ cocci in pairs. - Lactate 2.3 this am, repeat in am. Procalcitonin neg. - PFTs on monday/echo on monday - Resp therapy - Oxygen as needed - Decrease steroids to po - Continue home glipizide - SSI - Carb consistent diet - BP better at present, monitor closely. 04/09/17 Today, his WBC is up again. This could still be steroid induced. He is afebrile. He is on RA. He continues to have a mildly productive cough. Plan for PFTs monday. CTA of the chest was unremarkable, no PE, Small infiltrates in both lower lung guaman. CP better and only there with cough. Breathing is fine. No N/V/D/C. Eating well. Kana and bladder working fine. - Lactate 2.8 this am not seeing evidence of shock/sepsis, repeat in am. Procalcitonin neg. - Steroids changed to low dose po today 04/10/17 Continue Levaquin for pulmonary coverage. Continue DuoNeb treatments - budesonide added today by pulm. Continue Prednisone 20mg. Will schedule Mucinex DM to decrease cough - Tussionex prn. Check on PFT - discussed with Dr Deleon who plans to read then post clinic today. ECHO pending. Sputum pending. Encourage activities. Will recheck CBC in am due to leukocytosis. Repeat CMP. 04/11/17 ECHO showing: Normal LV systolic function with ejection fraction of 55% Mild tricuspid regurgitation with normal estimated pulmonary artery systolic pressure of 25. Mild pulmonary insufficiency. PFT showing: Asthma Maintaining saturations well on RA. Medically stable for discharge to home. Pulmonology recommending Breo 200/25 one puff once a day - samples given. Will continue with Albuterol Neb treatments TID - my use his MDI every 4 hours as needed. Routine use of Mucinex DM BID for 1 week, then as needed for cough. Phenergan with Codeine 5ml q 6 hours prn severe cough. Continue Prednisone - 20mg daily for 5 days, then may decrease to the 10mg he has at home and finish these. Cipro 500mg po BID for then next days to complete antibiotic course. F/U with Dr Moody in 1 week for PCP evaluation. F/U with Dr Deleon in 2-3 weeks for pulmonary evaluation. See orders for details
--- NOTE | 2017-04-11 13:39 | Discharge Summary ---
Discharge Information Date of admission: 04/07/17 22:03 Anticipated date of discharge: 04/11/17 Attending Physician: Austin Lara MD Primary care physician: Vazquez Moody MD Consults: Dr Deleon - Pulmonology Discharge diagnosis Acute hypoxic respiratory failure Associated conditions and complications Acute exacerbation of reactive air way disease - PFT showing Asthma Leukocytosis Elevated ALT 6 mm left lower lobe pulmonary nodule. Recommend noncontrast chest CT follow-up in 6-12 months. Type II DM HDL Hx smoking Elevated lactate of uncertain etiology - not seeing evidence for sepsis Elevated BP at presentation - improved Obesity with BMI 30.9 - Procedures Procedures: Date of Exam: 04/10/17 Type of Exam: US echo doppler complete Left atrial dimension is normal. Left ventricle end-diastolic dimension is normal. Left ventricle wall thickness is normal. LV systolic function is normal with ejection fraction of 55%. Right atrium is normal. Right ventricle is normal. Aortic root dimension is normal. Mitral valve is morphologically normal. Aortic valve appears to be normal. Tricuspid valve shows mild tricuspid regurgitation with normal estimated pulmonary artery systolic pressure of 25. Pulmonary valve shows mild pulmonary insufficiency. There is no pericardial effusion. IMPRESSION 1. Normal LV systolic function with ejection fraction of 55%. 2. Mild tricuspid regurgitation with normal estimated pulmonary artery systolic pressure of 25. 3. Mild pulmonary insufficiency. Pulmonary Function Testing: Asthma - Laboratory Labs: Admit Lab 04/07/17 19:53 WBC 21.6 H Hgb 13.4 L Hct 41.8 MCV 92.5 Plt Count 359 Neutrophils % (Manual) 59.0 Band Neutrophils % 1.0 Lymphocytes % (Manual) 26.0 Monocytes % (Manual) 4.0 Eosinophils % (Manual) 10.0 H Admit Lab 04/07/17 04/07/17 19:53 19:53 Sodium 142 Potassium 3.9 Chloride 101 Carbon Dioxide 28 Anion Gap 13 BUN 13.0 Creatinine 0.8 GFR Calculation 96 BUN/Creatinine Ratio 16 Glucose 125 H Calculated Osmolality 274 Calcium 9.2 Total Bilirubin 0.30 AST 36 ALT 81 H Alkaline Phosphatase 104 Troponin I < 0.012 Total Protein 7.8 Albumin 4.3 Globulin 3.5 Albumin/Globulin Ratio 1.2 Plasma Lactate 1.8 Procalcitonin < 0.05 11/21/17 04:48 04/11/17 04:48 - Radiology Radiology: Date of Exam: 04/07/17 PROCEDURE: CHEST 2-VIEWS UPRIGHT (PA & LAT) FINDINGS: The lungs are clear without evidence of focal abnormal airspace opacity. There is no pleural effusion or pneumothorax. The heart size, mediastinal contours and pulmonary vascularity are within normal limits. There is no significant skeletal abnormality. IMPRESSION: No acute cardiopulmonary disease. Date of Exam: 04/08/17 PROCEDURE: CT angio pulm emboli Findings: Pulmonary arteries: Exam is diagnostic to the subsegmental pulmonary arterial level. No filling defects identified to suggest a pulmonary embolus. Other findings: No pleural effusion or pneumothorax. Scattered inflammatory type opacities the lower lobes with mild groundglass. Upper lung guaman are clear. Central airways are patent. 6 mm left lower lobe noncalcified pulmonary nodule. No axillary or mediastinal adenopathy. Heart size is normal. No pericardial effusion. The upper abdomen shows no acute findings. Impression: 1. No pulmonary embolus. 2. Minimal infectious or inflammatory change in the lung bases. 3. 6 mm left lower lobe pulmonary nodule. Recommend noncontrast chest CT follow- up in 6-12 months. Date of Exam: 04/10/17 EXAM: XR chest 2V FINDINGS:The lungs are hyperinflated with increased AP diameter and flattening of the diaphragms which may be from chronic emphysematous changes. The cardiomediastinal silhouette is within limits of normal. The pulmonary vascularity appears unremarkable. The lungs are clear. There is no evidence for pleural effusion. There is no evidence for a pneumothorax. Multiple rib deformities are seen of multiple anterolateral left ribs. IMPRESSION: No acute process identified. History of Present Illness HPI: Shreyas is a 72 y/o w/ 1-2 month h/o persistent cough, intermittent shortness of air and wheezing that has become more prominent over the past 1-2 weeks. Patient was seen in [place] ER about 1 week ago for SOA and dyspnea and wheezing and temporarily improved w/ corticosteroids and neb treatments and sent home w/ albuterol mdi and tapering prednisone Patient returns to ER at [facility] tonight w/ persistent cough, dyspnea, wheezing and shortness of breath. Patient states he has no known h/o COPD or asthma, though states had similar episode about 6 years ago and also states did have asbestos exposure in the past. Patient states was set up to see local Repe[employer] Dr. Obando and also a Daycare Teacher in [place] but has not seen either of them yet. Patient in ER having wheezing and dyspnea and on RA was noted to have O2 sat of 68%. He had some diaphoresis and tachypnea and sinus tachycardia but denies chest pain, f/c/s and n/v/d. However does have some Chest discomfort w/ coughing episodes. Was using his albuterol inhaler about every 30 minutes tonight prior to arrival in ER. Patient states that his had a similar cough that lasted about 4 weeks and she is doing better now. Patient received DuoNebs x 2 and SoluMedrol 125mg IV x one and is now doing much better. O2 sat is 95% on 2 L/min O2 per NC. Patient's CXR prelim read that of no acute process, and EKG shows sinus tachycardia. Troponin and Lactate WNL; WBC = 21.6K. No left shift. Patient given Levaquin 750mg IV x one, had blood and sputum culture sent. Patient to be admitted to the Hospitalist service for further evaluation and management For complete details of the H&P refer to that document. Objective Vital signs: Temperature 96.8 F 04/11/17 07:29 Pulse Rate 86 04/11/17 08:17 Respiratory Rate 18 04/11/17 11:36 Blood Pressure 127/78 04/11/17 07:29 Pulse Oximetry 98 04/11/17 11:36 Height/Weight/BMI: Height 1.69 m Weight 85.6 kg Body Mass Index 31.1 Hospital Course This is a general summary of the patient's hospital course. For more details refer to the complete medical record. Hospital course: 04/07/17 - Admission Assessment Acute hypoxic respiratory failure Acute exacerbation of reactive air way disease Leukocytosis Type II DM HDL Hx smoking Elevated lactate of uncertain etiology - not seeing evidence for sepsis Elevated BP at presentation - improved Plan Admit to Hospitalist service Consult Dr. Obando of Pulmonary RT consult; DuoNebs QID - Albuterol nebs q 2 hours prn Levaquin 750mg IV q 24 hours Sputum cx/Blood cx Resp panel and mycoplasma Solu-Medrol 125mg IV q [address] scan chest if no significant improvement in the AM Correctional Insulin and accuchecks ac and hs Carb consistent diet SCDs Tussionex 5mL po q 12 hours PRN (per patient's request) 04/08/17 - CT with and without contrast ordered for eval of PE, ILD - Sputum with Gram+ cocci in pairs. - Lactate 2.3 this am, repeat in am. Procalcitonin neg. - PFTs on monday/echo on monday - Resp therapy - Oxygen as needed - Decrease steroids to po - Continue home glipizide - SSI - Carb consistent diet - BP better at present, monitor closely. 04/09/17 Today, his WBC is up again. This could still be steroid induced. He is afebrile. He is on RA. He continues to have a mildly productive cough. Plan for PFTs monday. CTA of the chest was unremarkable, no PE, Small infiltrates in both lower lung guaman. CP better and only there with cough. Breathing is fine. No N/V/D/C. Eating well. Kana and bladder working fine. - Lactate 2.8 this am not seeing evidence of shock/sepsis, repeat in am. Procalcitonin neg. - Steroids changed to low dose po today 04/10/17 Continue Levaquin for pulmonary coverage. Continue DuoNeb treatments - budesonide added today by pulm. Continue Prednisone 20mg. Will schedule Mucinex DM to decrease cough - Tussionex prn. Check on PFT - discussed with Dr Deleon who plans to read then post clinic today. ECHO pending. Sputum pending. Encourage activities. Will recheck CBC in am due to leukocytosis. Repeat CMP. 04/11/17 ECHO showing: Normal LV systolic function with ejection fraction of 55% Mild tricuspid regurgitation with normal estimated pulmonary artery systolic pressure of 25. Mild pulmonary insufficiency. PFT showing: Asthma Maintaining saturations well on RA. Medically stable for discharge to home. Pulmonology recommending Breo 200/25 one puff once a day - samples given. Will continue with Albuterol Neb treatments TID - my use his MDI every 4 hours as needed. Routine use of Mucinex DM BID for 1 week, then as needed for cough. Phenergan with Codeine 5ml q 6 hours prn severe cough. Continue Prednisone - 20mg daily for 5 days, then may decrease to the 10mg he has at home and finish these. Cipro 500mg po BID for then next 5 days to complete antibiotic course. F/U with Dr Moody in 1 week for PCP evaluation. F/U with Dr Deleon in 2-3 weeks for pulmonary evaluation. See orders for details DVT Prophylaxis: Lovenox Discharge Plan - Discharge Disposition Discharge Date: 04/11/17 Disposition: 01 Discharged Home, Self-Care *Condition: Stable Reason For Visit (Visit label in EMR): dyspnea,hypoxia,wheezing - Discharge Medications *Discharge Medications: New Ciprofloxacin [Cipro] 500 mg PO BID #7 tab PredniSONE [Deltasone] 20 mg PO WB #5 tab Promethazine Plain Liq [Phenergan Elixir] 5 ml PO Q6H PRN #200 ml PRN Reason: Cough Fluticasone/Vilanterol [Breo Ellipta 200-25 Mcg Inhaler] 1 puff INH DAILY # 30 inhaler Continue Metformin [Glucophage] 1,000 mg PO BID glipiZIDE [Glipizide ER] 10 mg PO DAILY predniSONE [Prednisone] 10 mg PO DAILY #18 tab Guaifenesin/Dm [Mucinex Dm] 1 tab PO BID PRN PRN Reason: Cough Atorvastatin [Lipitor] 20 mg PO HS FLUoxetine [Prozac] 10 mg PO DAILY Changed Albuterol HFA Inhaler [Ventolin Hfa 90 mcg/actuation] 1 puff INH BID PRN #0 PRN Reason: Shortness Of Air Albuterol Neb (0.5%) [Proventil Neb (0.5%)] 2.5 mg AEROSOL TID #30 vial - Discharge Packet/Instructions *Diet: 2000 KCAL ADA low sodium *Activity: As tolerated *Pain Management/Treatment: Tylenol as needed *Wound Care: n/a Additional Instructions: Use Mucinex DM twice a day routinely to decrease cough , then twice a day as needed for cough. Start Prednisone 20mg with breakfast tomorrow - use daily for 5 days. When out, decrease to the 10mg tablet of Prednisone and use once a day with breakfast. Start ciprofloxin 500mg twice a day tonight - antibiotic. Use albuterol nebulized treatments 3 times a day routinely. *Expected Signs/Symptoms: Improvement of breathing and decreasing cough *Notify Physician if: Temp >100.4. Increasing shortness of air. *During Business Hours Contact: Dr Moody *After Business Hours Contact: Dr Moody *Pending Lab/Results: No Pending Lab - Referrals/Follow Up *Referrals/Follow Up: Vazquez Moody MD [Family Provider] - 1 Week (Hospital follow up for respiratory failure secondary to asthma ) Luis Daniel Deleon MD [Physician] - 2 Weeks (Pulmonary follow up. ) - Patient Handouts Patient Handouts: Hypoxia (GEN) - Dismissal Complete Discharge Instructions are:: Complete Attestation Narriative - Attestation Attestation Narrative: 04/11/17 13:47 I have independently interviewed and examined patient prior to discharge. See my progress note from today for details. Medically stable for discharge to home.
[2017-04-11 15:22] VITALS: PULSE 85
== END 2017-04-11 15:14 | disposition home or self-care (01) | DRG 189 ==
LOC: ED 19:19 → MED 22:03 → SUATTDRO 22:03 → MED 22:50
PROVIDERS: ADMIT Internal Medicine; ATTEND Hospitalist